=== PATIENT | male | born 1985 | race Caucasian/White ===

== ENCOUNTER 2018-03-21 11:16 | Inpatient (IN) | payer MEDICAID ==
[2018-03-21] MEDS ORDERED: Sodium Chloride 0.9% 1,000 ML IV STA ×2 (11:58→16:58)
[2018-03-21] MEDS ORDERED: Morphine 5 MG/ML SYRINGE IVP STA (11:58)
[2018-03-21] MEDS ORDERED: Morphine 2 mg/ml ISec IVP STA (12:03)
[2018-03-21] MEDS ORDERED: Iohexol 240 (50 ml) ONE (12:08)
--- NOTE | 2018-03-21 12:08 | ED PDOC ---
Arrival/HPI - History of Present Illness Time/Duration: < week Symptom Course: Worsening Activities at Onset: Light Context: Home <Livier Cooper - Last Filed: 03/21/18 13:57> <Cierra Mckay - Last Filed: 03/21/18 17:48> - General Chief Complaint: GI Problem Time Seen by Provider: 03/21/18 11:18 - History of Present Illness Narrative History of Present Illness (Text): 03/21/18 12:03 This is a 33 year old male with PMH of hemorrhoids presenting to the ER today for three day history of LLQ abdominal pain, constipation and no bowel movements. Patient states that he has had similar abdominal pain in the past, but this time it feels much worse. He denies CP, SOB, vomiting, nausea, diarrhea , hematemesis, hematochezia, fevers, headaches and chills. He denies smoking, drinking and drugs. He occasionally takes ibuprofen for the pain and proctosol cream for the hemorrhoids. PCP is Dr. De Guzman at [facility] in [place]. (Livier Cooper) Past Medical History - Provider Review Nursing Documentation Reviewed: Yes - Psychiatric Hx Psychophysiologic Disorder: No Hx Substance Use: No <Livier Cooper - Last Filed: 03/21/18 13:57> Family/Social History - Physician Review Nursing Documentation Reviewed: Yes Family/Social History: Unknown Family HX Smoking Status: Never Smoked Hx Alcohol Use: No Hx Substance Use: No <Livier Cooper - Last Filed: 03/21/18 13:57> Allergies/Home Meds <Livier Cooper - Last Filed: 03/21/18 13:57> <Cierra Mckay - Last Filed: 03/21/18 17:48> Allergies/Adverse Reactions: Allergies No Known Allergies Allergy (Verified 03/21/18 11:27) Home Medications: Home Meds Medication Instructions Recorded Confirmed Fluticasone Nasal [Flonase] 1 spray MAURY DAILY 03/21/18 03/21/18 Loratadine [Claritin] 10 mg PO DAILY 03/21/18 03/21/18 Review of Systems - Physician Review All systems were reviewed & negative as marked: Yes - Review of Systems Constitutional: Normal. absent: Fevers Eyes: Normal ENT: Normal Respiratory: Normal. absent: SOB Cardiovascular: Normal. absent: Chest Pain Gastrointestinal: Abdominal Pain, Constipation. absent: Diarrhea, Nausea, Vomiting, Hematochezia, Hematemesis Genitourinary Male: Normal, Dysuria. absent: Hematuria Musculoskeletal: Normal Skin: Normal Neurological: Normal Psychiatric: Normal <NicoleLivier metcalf - Last Filed: 03/21/18 13:57> Physical Exam Vital Signs Reviewed: Yes Temperature: Afebrile Blood Pressure: Normal Pulse: Tachycardic Respiratory Rate: Normal Appearance: Positive for: Well-Appearing, Non-Toxic, Comfortable Pain Distress: None Mental Status: Positive for: Alert and Oriented X 3 - Systems Exam Head: Present: Atraumatic, Normocephalic Pupils: Present: PERRL Extroacular Muscles: Present: EOMI Conjunctiva: Present: Normal Mouth: Present: Moist Mucous Membranes Neck: Present: Normal Range of Motion Respiratory/Chest: Present: Clear to Auscultation, Good Air Exchange. No: Respiratory Distress, Accessory Muscle Use Cardiovascular: Present: Regular Rate and Rhythm, Normal S1, S2. No: Murmurs Abdomen: Present: Tenderness, Normal Bowel Sounds, Other (tenderness LLQ). No: Distention, Peritoneal Signs, Rebound, Guarding, McBurney's Point Tender Rectal: Present: Other (tender mass noted along the inferior right margin lateral to rectum. ). No: Occult Blood, Gross Blood Back: Present: Normal Inspection Upper Extremity: Present: Normal Inspection. No: Cyanosis, Edema Lower Extremity: Present: Normal Inspection. No: Edema Neurological: Present: Speech Normal, Motor Func Grossly Intact, Normal Sensory Function Skin: Present: Warm, Dry, Normal Color. No: Rashes Psychiatric: Present: Alert, Oriented x 3, Normal Insight, Normal Concentration <Livier Cooper - Last Filed: 03/21/18 13:57> Vital Signs Temp Pulse Resp BP Pulse Ox 03/21/18 17:27 101 H 20 122/85 98 03/21/18 16:58 98.0 F 96 H 18 102/82 97 03/21/18 11:28 99.0 F 133 H 20 116/82 100 Medical Decision Making <NicoledixonLivier - Last Filed: 03/21/18 13:57> <Cierra Mckay - Last Filed: 03/21/18 17:48> ED Course and Treatment: 03/21/18 12:13 Impression: This is a 33 year old male with PMH of hemorrhoids presenting to the ER today for three day history of LLQ abdominal pain, constipation and no bowel movements. Differential not limited to: Rectal abscess vs. perirectal abscess vs hemmorrhoids vs diverticulosis Plan: Blood work and lipase. Ordering CT abdomen to visualize rectal abscess. Progress: 03/21/18 13:57 Patient resting comfortably, no acute distress and afebrile. (Livier Cooper) 03/21/18 15:35 Patient seen by resident and then evaluated by me. Complaining of constipation and rectal pain. Physical exam shows fluctulant abscess near rectum. LLQ pain also on exam. Rectal exam deferred due to severe pain. CT shows "No acute intra-abdominal findings. There is a right-sided perirectal abscess measuring 28 mm in height and 16 mm in diameter". Surgery resident aware. Dr. Liu paged 03/21/18 17:47 EKG shows NSR at 100bpm. Normal intervals and no ST changes. Accepted by Dr. Saldaña with plan for OR tomorrow morning (Cierra Mckay) - Lab Interpretations Lab Results: 03/21/18 12:17 03/21/18 12:17 Lab Results 03/21/18 12:17: Sodium 141, Potassium 4.4, Chloride 102, Carbon Dioxide 27, Anion Gap 16, BUN 8, Creatinine 0.9, Est GFR ( Amer) > 60, Est GFR (Non- Af Amer) > 60, Random Glucose 104, Calcium 9.3, Total Bilirubin 1.2, AST 28, ALT 47, Alkaline Phosphatase 57, Total Protein 8.0, Albumin 4.5, Globulin 3.5, Albumin/Globulin Ratio 1.3, Lipase 13 L 03/21/18 12:17: WBC 9.0, RBC 4.69, Hgb 14.8, Hct 42.3, MCV 90.2, MCH 31.6, MCHC 35.0, RDW 13.1, Plt Count 201, MPV 10.9, Gran % 74.0 H, Lymph % (Auto) 16.4 L, Amador % (Auto) 7.8 H, Eos % (Auto) 1.6, Baso % (Auto) 0.2, Gran # 6.69 H, Lymph # (Auto) 1.5, Amador # (Auto) 0.7 H, Eos # (Auto) 0.1, Baso # (Auto) 0.02 - RAD Interpretation Radiology Orders: 03/21/18 11:58 ABD PELVIS PO & IV CONTRAST [CT] Stat - Medication Orders Current Medication Orders: Sodium Chloride (Sodium Chloride 0.9%) 1,000 mls @ 999 mls/hr IV .Q1H1M STA Stop: 03/21/18 17:58 Last Admin: 03/21/18 16:59 Dose: 999 mls/hr eMAR Start Stop Document 03/21/18 16:59 [email or web address] (Rec: 03/21/18 17:00 [email or web address] [id number]) Intravenous Solution Start Date 03/21/18 Start Time 17:00 End Date 03/21/18 Discontinued Medications Sodium Chloride (Sodium Chloride 0.9%) 1,000 mls @ 999 mls/hr IV .Q1H1M STA Stop: 03/21/18 12:58 Last Admin: 03/21/18 12:23 Dose: 999 mls/hr eMAR Start Stop Document 03/21/18 12:23 [email or web address] (Rec: 03/21/18 12:25 [email or web address] [id number]) Intravenous Solution Start Date 03/21/18 Start Time 12:25 Lidocaine (Lidocaine 5%) 1 gm TOP STAT STA Stop: 03/21/18 15:02 Last Admin: 03/21/18 17:00 Dose: 1 gm Morphine Sulfate (Morphine) 5 mg IVP STAT STA Stop: 03/21/18 12:04 Last Admin: 03/21/18 12:25 Dose: 5 mg MAR Pain Assessment Document 03/21/18 12:25 [email or web address] (Rec: 03/21/18 12:25 [email or web address] [id number]) Pain Reassessment Is this a pain reassessment? No Sleep Is patient sleeping during reassessment? No Presence of Pain Presence of Pain Yes Pain Scale Used Pain Scale Used Numeric Location Pain Location Body Site Abdomen Description Description Constant Intensity of Pain at present 7 Pain Behavior Facial Grimacing Aggravating Factors Changing Position Alleviating Factors/Management Medication Techniques Alleviating Factors Medication IVP Administration Document 03/21/18 12:25 [email or web address] (Rec: 03/21/18 12:25 [facility] [id number]) Charges for Administration # of IVP Administrations 1 - PA / DIVIDEND CLERK / Resident Statement / has reviewed & agrees with the documentation as recorded. / has examined the patient and agrees with the treatment plan. <Livier Cooper - Last Filed: 03/21/18 13:57> Disposition/Present on Arrival - Present on Arrival History of DVT/PE: No History of Uncontrolled Diabetes: No Urinary Catheter: No History of Decub. Ulcer: No History Surgical Site Infection Following: None <Livier Cooper - Last Filed: 03/21/18 13:57> - Present on Arrival Any Indicators Present on Arrival: No - Disposition Have Diagnosis and Disposition been Completed?: Yes Disposition Time: 17:48 Patient Plan: Admission <Cierra Mckay - Last Filed: 03/21/18 17:48> - Disposition Diagnosis: Rectal abscess Disposition: HOSPITALIZED Condition: FAIR Referrals: Craig De Guzman [Primary Care Provider] - Follow up with primary Forms: [employer]Me (Thai)
[2018-03-21 12:20] LABS: BASO # 0.02 K/mm3 (0.0-2.0); BASO % 0.2 % (0.0-3.0); EOS # 0.1 (0.0-0.7); EOS % 1.6 % (1.5-5.0); GRAN # 6.69 (1.4-6.5); HEMOGLOBIN 14.8 g/dL (14.0-18.0); LYMPH # 1.5 (1.2-3.4); LYMPH % 16.4 % (22.0-35.0); MEAN CELL VOLUME 90.2 fl (80.0-105.0); MEAN CORPUSCULAR HEMOGLOBIN 31.6 pg (25.0-35.0); MEAN PLATELET VOLUME 10.9 fl (7.0-11.0); MONO # 0.7 (0.1-0.6); MONO % 7.8 % (1.0-6.0); RBC 4.69 10^6/uL (3.5-6.1); RED CELL DISTRIBUTION WIDTH 13.1 % (11.5-14.5)
[2018-03-21 12:30] LABS: ALB/GLOB RATIO 1.3 (1.1-1.8); ALBUMIN 4.5 g/dL (3.0-4.8); ALT/SGPT 47 U/L (7-56); AST/SGOT 28 U/L (17-59); BLOOD UREA NITROGEN 8 mg/dL (7-21); CALCIUM 9.3 mg/dL (8.4-10.5); GFR AFRICAN-AMERICAN > 60; GFR NON-AFRICAN AMERICAN > 60; LIPASE 13 U/L (23-300)
[2018-03-21] MEDS ORDERED: Lidocaine 2% Jelly (Uro-Jet) TOP STA (13:45)
[2018-03-21] MEDS ORDERED: Lidocaine 5% Oint(35 gm) TOP STA (15:01)
--- NOTE | 2018-03-21 15:29 | CT ---
Date of service: 03/21/2018 PROCEDURE: CT Abdomen and Pelvis with contrast HISTORY: LLQ abd pain with rectal abscess COMPARISON: None. TECHNIQUE: Contrast dose: 150 cc of Omni 350 Radiation dose: Total exam DLP = 963 mGy-cm. This CT exam was performed using one or more of the following dose reduction techniques: Automated exposure control, adjustment of the mA and/or kV according to patient size, and/or use of iterative reconstruction technique. FINDINGS: LOWER THORAX: Unremarkable. LIVER: Unremarkable. No gross lesion or ductal dilatation. GALLBLADDER AND BILE DUCTS: Unremarkable. PANCREAS: Unremarkable. No gross lesion or ductal dilatation. SPLEEN: Unremarkable. ADRENALS: Unremarkable. No mass. KIDNEYS AND URETERS: Unremarkable. No hydronephrosis. No solid mass. VASCULATURE: Unremarkable. No aortic aneurysm. BOWEL: Unremarkable. No obstruction. No gross mural thickening. There is a right-sided perirectal abscess measuring 28 mm in height and 16 mm in diameter APPENDIX: Normal appendix. PERITONEUM: Unremarkable. No free fluid. No free air. LYMPH NODES: Unremarkable. No enlarged lymph nodes. BLADDER: Unremarkable. REPRODUCTIVE: Unremarkable. BONES: No acute fracture. OTHER FINDINGS: None. IMPRESSION: No acute intra-abdominal findings There is a right-sided perirectal abscess measuring 28 mm in height and 16 mm in diameter
[2018-03-21] MEDS ORDERED: Morphine 4 mg/ml ISec IVP STA (17:47)
--- NOTE | 2018-03-21 18:09 | CP.PCM.CON ---
History of Present Illness - History of Present Illness History of Present Illness: General Surgery consult note for Dr. Liu Consulted for rectal abscess/ perirectal abscess Mr. Connell is a 33 yr old male with PMH of hemorrhoids (3 years ago) who presents with rectal pain for approximately one week. Associated symptoms include LLQ abdominal pain, alternating diarrhea (chronic) and constipation. Patient otherwise denies N/V, F/C, bloody stool, drainage or pus from abscess area, any previous episodes like this. patient does complain of headache and admits that he has not been drinking much water recently. Patient did have near syncopal episode when moving rooms in ER with BP reading after getting to bed of 88/32, 1L bolus NS was started, BP was 122/85 within 5 min of episode. PMH: hemorrhoids PSH: none Allergies: none Social: occasion hooka smoking, occasional etoh, no drugs Review of Systems - Review of Systems All systems: reviewed and no additional remarkable complaints except Review of Systems: as Per HPI Past Patient History - Past Social History Smoking Status: Never Smoked - PSYCHIATRIC Hx Psychophysiologic Disorder: No Hx Substance Use: No - SURGICAL HISTORY Hx Surgeries: No Meds Allergies/Adverse Reactions: Allergies Allergy/AdvReac Type Severity Reaction Status Date / Time No Known Allergies Allergy Verified 03/21/18 11:27 - Medications Medications: Current Medications Acetaminophen (Tylenol 325mg Tab) 650 mg PO Q6 PRN PRN Reason: Pain, Mild (1-3) Docusate Sodium (Colace) 100 mg PO BID PRN PRN Reason: Constipation Morphine Sulfate (Morphine) 5 mg IVP Q6H PRN PRN Reason: Pain, severe (8-10) Ondansetron HCl (Zofran Inj) 4 mg IVP Q6 PRN PRN Reason: Nausea/Vomiting Oxycodone/Acetaminophen (Percocet 5/325 Mg Tab) 1 tab PO Q6H PRN PRN Reason: Pain, moderate (4-7) Stop: 03/24/18 18:01 Physical Exam - Constitutional Appears: Well, Non-toxic - Head Exam Head Exam: ATRAUMATIC, NORMOCEPHALIC - ENT Exam ENT Exam: Mucous Membranes Moist - Respiratory Exam Respiratory Exam: NORMAL BREATHING PATTERN - Cardiovascular Exam Cardiovascular Exam: Tachycardia - GI/Abdominal Exam GI & Abdominal Exam: Soft, Tenderness. absent: Distended, Guarding, Rebound, Rigid Additional comments: mild LLQ tenderness - Rectal Exam Rectal Exam: absent: Bloody Stool, Hemorrhoids, Fecal Impaction Additional comments: 3cm by 2 cm erythematous fluctuant mass on the right aspect of the anus which extends into the rectal vault, no hemorrhoids felt or visualized on exam, no gross blood on exam, heme-occult negative, no masses or stool in rectal vault, prostate smooth and nonenlarged, pt was extremely tender on exam - Extremities Exam Extremities exam: Negative for: pedal edema - Neurological Exam Neurological exam: Alert, Oriented x3 - Psychiatric Exam Psychiatric exam: Anxious - Skin Skin Exam: Dry, Intact, Warm Additional comments: 3cm x 2.5 cm erythematous fluctuant area in right perirectal area Results - Vital Signs Recent Vital Signs: Last Vital Signs Temp 98.0 F 03/21/18 16:58 Pulse 101 H 03/21/18 17:27 Resp 20 03/21/18 17:27 BP 122/85 03/21/18 17:27 Pulse Ox 98 03/21/18 17:27 - Labs Result Diagrams: 03/21/18 12:17 03/21/18 12:17 Assessment & Plan - Assessment and Plan (Free Text) Assessment: 33 yr old male with rectal abscess Plan: -WBC normal, mild left shift - begin abx levoquin and flagyl - PRN pain medication - patient NPO after midnight - I &D of abscess in OR in AM
[2018-03-21] MEDS: Morphine 4 mg/ml ISec IVP PRN ×2 (18:30→23:45)
[2018-03-21] MEDS: Oxycodone/Acetaminophen 5/325 mg Tab PO PRN (20:18)
[2018-03-21] MEDS: metroNIDAZOLE IV 500 mg/100 ml 500 MG/100 ML BAG IVPB SCH (23:46)
[2018-03-22] MEDS: Oxycodone/Acetaminophen 5/325 mg Tab PO PRN ×2 (03:04→17:42)
[2018-03-22] MEDS: metroNIDAZOLE IV 500 mg/100 ml 500 MG/100 ML BAG IVPB SCH ×4 (05:07→23:05)
[2018-03-22] MEDS: Morphine 4 mg/ml ISec IVP PRN (05:14)
[2018-03-22 07:35] LABS: BASO # 0.02 K/mm3 (0.0-2.0); BASO % 0.2 % (0.0-3.0); EOS % 0.1 % (1.5-5.0); GRAN # 8.8 (1.4-6.5); GRAN % 79.7 % (50.0-68.0); HEMOGLOBIN 13.5 g/dL (14.0-18.0); LYMPH # 1.4 (1.2-3.4); LYMPH % 12.6 % (22.0-35.0); MEAN CELL VOLUME 91.3 fl (80.0-105.0); MEAN CORPUSCULAR HEMOGLOBIN 30.8 pg (25.0-35.0); MEAN CORPUSCULAR HGB CONC 33.8 g/dl (31.0-37.0); MEAN PLATELET VOLUME 10.9 fl (7.0-11.0); MONO # 0.8 (0.1-0.6); MONO % 7.4 % (1.0-6.0); RBC 4.38 10^6/uL (3.5-6.1); RED CELL DISTRIBUTION WIDTH 12.9 % (11.5-14.5)
[2018-03-22] MEDS ORDERED: Propofol 10 mg/ml Inj (20 ML) ONE (07:43)
[2018-03-22] MEDS ORDERED: Midazolam 2 MG/2 ML VIAL ONE (07:43)
[2018-03-22 07:45] LABS: INR 1.17 (0.93-1.08); PARTIAL THROMBOPLASTIN TIME 26.6 Seconds (25.1-36.5); PROTHROMBIN TIME 13.5 SECONDS (9.4-12.5)
[2018-03-22 07:50] LABS: BLOOD UREA NITROGEN 7 mg/dL (7-21); GFR AFRICAN-AMERICAN > 60; GFR NON-AFRICAN AMERICAN > 60
[2018-03-22] MEDS ORDERED: HYDROmorphone 0.5 mg/0.5 ml ISec IVP PRN (08:49)
--- NOTE | 2018-03-22 08:53 | PCM.SURG1 ---
Surgeon's Initial Post Op Note - Surgeon's Notes Surgeon: Dr. Liu Service Delivery Analyst: Tari Alvarez, PGY 1 Type of Anesthesia: General Endo Pre-Operative Diagnosis: Rectal abscess Operative Findings: 4cm x 3 cm loculated rectal abscess, no masses ulcers or fistulas seen on proctoscopic investigation Post-Operative Diagnosis: rectal abscess Operation Performed: Irrigation and drainage of rectal abscess, exam under anesthesia Specimen/Specimens Removed: wound culture Estimated Blood Loss: EBL {In ML}: 5 Blood Products Given: N/A Drains Used: [place] Post-Op Condition: Fair Date of Surgery/Procedure: 03/22/18 Time of Surgery/Procedure: 08:15
[2018-03-22] MEDS ORDERED: Lactated Ringer's 1,000 ML IV SCH (09:00)
[2018-03-22] MEDS: levoFLOXacin 750 mg in D5W 750 MG/150 ML BAG IVPB SCH (10:38)
--- NOTE | 2018-03-22 12:21 | CARD ---
APPROVED REPORT Date of service: 03/21/2018 EKG Measurement Heart [id number] <Conclusion> Normal sinus rhythm Normal ECG
[2018-03-22] MEDS: POLYETHYLENE GLYCOL 3350 17 GM/Dose PACKET PO SCH (17:41)
[2018-03-23] MEDS: Oxycodone/Acetaminophen 5/325 mg Tab PO PRN ×2 (02:01→12:01)
[2018-03-23] MEDS: metroNIDAZOLE IV 500 mg/100 ml 500 MG/100 ML BAG IVPB SCH ×4 (05:08→23:20)
--- NOTE | 2018-03-23 08:20 | CP.PCM.PN ---
Subjective - Date & Time of Evaluation Date of Evaluation: 03/23/18 Time of Evaluation: 06:00 - Subjective Subjective: Patient seen and evaluated bedside. No acute issues overnight. Patent states he has very minimal tenderness in rectal area. Patient has not had a BM yet. Patient denies any fever, chills, abdominal pain, chest pain, SOB, or any complaints at this time. Objective - Vital Signs/Intake and Output Vital Signs (last 24 hours): Temp Pulse Resp BP Pulse Ox 98.7 F 92 H 20 132/85 98 03/22/18 22:00 03/22/18 22:00 03/22/18 22:00 03/22/18 22:00 03/22/18 22:00 Intake and Output: 03/23/18 03/23/18 06:59 18:59 Intake Total 980 Balance 980 - Medications Medications: Current Medications Acetaminophen (Tylenol 325mg Tab) 650 mg PO Q6 PRN PRN Reason: Pain, Mild (1-3) Docusate Sodium (Colace) 100 mg PO BID PRN PRN Reason: Constipation Metronidazole (Flagyl) 500 mg in 100 mls @ 100 mls/hr IVPB Q6 RAMON PRN Reason: Protocol Last Admin: 03/23/18 05:08 Dose: 100 mls/hr Levofloxacin/Dextrose (Levaquin 750mg) 750 mg in 150 mls @ 100 mls/hr IVPB DAILY RAMON PRN Reason: Protocol Last Admin: 03/22/18 10:38 Dose: 100 mls/hr Morphine Sulfate (Morphine) 5 mg IVP Q6H PRN PRN Reason: Pain, severe (8-10) Last Admin: 03/22/18 05:14 Dose: 5 mg Ondansetron HCl (Zofran Inj) 4 mg IVP Q6 PRN PRN Reason: Nausea/Vomiting Ondansetron HCl (Zofran Inj) 4 mg IVP ONCE PRN PRN Reason: Nausea/Vomiting Oxycodone/Acetaminophen (Percocet 5/325 Mg Tab) 1 tab PO Q6H PRN PRN Reason: Pain, moderate (4-7) Stop: 03/24/18 18:01 Last Admin: 03/23/18 02:01 Dose: 1 tab Polyethylene Glycol (Miralax) 17 gm PO DAILY [facility] Last Admin: 07/18/18 17:41 Dose: 17 gm - Labs Labs: 03/22/18 07:00 03/22/18 07:00 PT 13.5 SECONDS (9.4-12.5) H 03/22/18 07:00 INR 1.17 (0.93-1.08) H 03/22/18 07:00 APTT 26.6 Seconds (25.1-36.5) 03/22/18 07:00 - Constitutional Appears: Well, Non-toxic, No Acute Distress - Head Exam Head Exam: ATRAUMATIC, NORMAL INSPECTION, NORMOCEPHALIC - Eye Exam Eye Exam: EOMI, Normal appearance - ENT Exam ENT Exam: Mucous Membranes Moist - Respiratory Exam Respiratory Exam: Clear to Ausculation Bilateral, NORMAL BREATHING PATTERN - Cardiovascular Exam Cardiovascular Exam: REGULAR RHYTHM, +S1, +S2 - GI/Abdominal Exam GI & Abdominal Exam: Soft. absent: Distended, Guarding, Rigid, Tenderness - Rectal Exam Additional comments: emilia drain in place, suture in tact between emilia, dressing in tact - Neurological Exam Neurological Exam: Alert, Awake, Oriented x3 Assessment and Plan - Assessment and Plan (Free Text) Assessment: 33 yr old male with rectal abscess, status post I&D. Plan: - status post I&D yesterday - f/u cultures - continue sitz baths - monitor dressing site - continue abx - PRN pain medication - case discussed with Dr. Liu - further recs as per Dr. Liu
[2018-03-23] MEDS: levoFLOXacin 750 mg in D5W 750 MG/150 ML BAG IVPB SCH (09:33)
[2018-03-23] MEDS: POLYETHYLENE GLYCOL 3350 17 GM/Dose PACKET PO SCH (09:33)
[2018-03-23 11:48] LABS: BASO # 0.02 K/mm3 (0.0-2.0); BASO % 0.3 % (0.0-3.0); EOS # 0.1 (0.0-0.7); EOS % 2.1 % (1.5-5.0); GRAN # 3.98 (1.4-6.5); GRAN % 69.2 % (50.0-68.0); HEMOGLOBIN 13.2 g/dL (14.0-18.0); LYMPH # 1.2 (1.2-3.4); LYMPH % 20.9 % (22.0-35.0); MEAN CELL VOLUME 91.6 fl (80.0-105.0); MEAN CORPUSCULAR HEMOGLOBIN 30.6 pg (25.0-35.0); MEAN CORPUSCULAR HGB CONC 33.4 g/dl (31.0-37.0); MEAN PLATELET VOLUME 10.7 fl (7.0-11.0); MONO # 0.4 (0.1-0.6); MONO % 7.5 % (1.0-6.0); RBC 4.31 10^6/uL (3.5-6.1); WHITE BLOOD COUNT 5.8 10^3/ul (4.5-11.0)
[2018-03-23 15:05] VITALS: TEMP 97.8
[2018-03-24] MEDS: metroNIDAZOLE IV 500 mg/100 ml 500 MG/100 ML BAG IVPB SCH (05:48)
[2018-03-24] MEDS: Oxycodone/Acetaminophen 5/325 mg Tab PO PRN (06:12)
[2018-03-24 08:05] VITALS: BP 111/74; PULSE 88; RESP 20; O2SAT 97
[2018-03-24] MEDS: levoFLOXacin 750 mg in D5W 750 MG/150 ML BAG IVPB SCH (09:13)
[2018-03-24] MEDS: POLYETHYLENE GLYCOL 3350 17 GM/Dose PACKET PO SCH (09:13)
--- NOTE | 2018-03-24 10:55 | CP.PCM.PN ---
Subjective - Date & Time of Evaluation Date of Evaluation: 03/24/18 Time of Evaluation: 08:30 - Subjective Subjective: General Surgery Progress Note for Dr. Liu Pt seen and examined this morning. he is recovering well with minimal bloody drainage, emilia is still in place. patient is urinating and having BMs ( diarrhea). His pain is well controlled. he denies n/v/f/c and abdominal pain. Objective - Vital Signs/Intake and Output Vital Signs (last 24 hours): Temp Pulse Resp BP Pulse Ox 97.8 F 88 20 111/74 97 03/24/18 06:00 03/24/18 06:00 03/24/18 06:00 03/24/18 06:00 03/24/18 06:00 Intake and Output: 03/24/18 03/24/18 06:59 18:59 Intake Total 360 Balance 360 - Medications Medications: Current Medications Acetaminophen (Tylenol 325mg Tab) 650 mg PO Q6 PRN PRN Reason: Pain, Mild (1-3) Last Admin: 03/23/18 15:34 Dose: 650 mg Docusate Sodium (Colace) 100 mg PO BID PRN PRN Reason: Constipation Metronidazole (Flagyl) 500 mg in 100 mls @ 100 mls/hr IVPB Q6 RAMON PRN Reason: Protocol Last Admin: 03/24/18 05:48 Dose: 100 mls/hr Levofloxacin/Dextrose (Levaquin 750mg) 750 mg in 150 mls @ 100 mls/hr IVPB DAILY RAMON PRN Reason: Protocol Last Admin: 03/24/18 09:13 Dose: 100 mls/hr Morphine Sulfate (Morphine) 5 mg IVP Q6H PRN PRN Reason: Pain, severe (8-10) Last Admin: 03/22/18 05:14 Dose: 5 mg Ondansetron HCl (Zofran Inj) 4 mg IVP Q6 PRN PRN Reason: Nausea/Vomiting Ondansetron HCl (Zofran Inj) 4 mg IVP ONCE PRN PRN Reason: Nausea/Vomiting Oxycodone/Acetaminophen (Percocet 5/325 Mg Tab) 1 tab PO Q6H PRN PRN Reason: Pain, moderate (4-7) Stop: 03/24/18 18:01 Last Admin: 03/24/18 06:12 Dose: 1 tab Polyethylene Glycol (Miralax) 17 gm PO DAILY RAMON Last Admin: 03/24/18 09:13 Dose: 17 gm - Labs Labs: 03/23/18 11:20 03/22/18 07:00 PT 13.5 SECONDS (9.4-12.5) H 03/22/18 07:00 INR 1.17 (0.93-1.08) H 03/22/18 07:00 APTT 26.6 Seconds (25.1-36.5) 03/22/18 07:00 - Constitutional Appears: Well, Non-toxic, No Acute Distress - Head Exam Head Exam: ATRAUMATIC, NORMOCEPHALIC - ENT Exam ENT Exam: Mucous Membranes Moist - Respiratory Exam Respiratory Exam: NORMAL BREATHING PATTERN - GI/Abdominal Exam GI & Abdominal Exam: Soft. absent: Distended, Guarding, Rigid, Tenderness, Rebound - Extremities Exam Extremities Exam: absent: Pedal Edema, Tenderness - Skin Additional comments: emilia drain in place, minimal bloody output from incisions, no pus noted on dressing, dressing changed at bedside Assessment and Plan - Assessment and Plan (Free Text) Assessment: 33 yr old male POD 2 s/p I&D of rectal abscess, patient is recovering well Plan: -clear for D/c from surgical standpoint -will go home with emilia in place - f/u for emilia to be removed in office -patient given prescription for ciprofloxacin and tylenol with codeine to go home with - patient may remove dressing and shower then replace dressing - discussed with Dr. Noe Alvarez, PGY1
--- NOTE | 2018-03-24 11:59 | CP.PCM.DIS ---
Provider - Provider Date of Admission: 03/21/18 17:41 Attending physician: Richie Liu MD Primary care physician: Craig De Guzman MD Consults: Urology Dr. Rojas Time Spent in preparation of Discharge (in minutes): 30 Diagnosis - Discharge Diagnosis (1) Rectal abscess Status: Resolved Hospital Course - Lab Results Lab Results: Micro Results 03/22/18 09:06 Other: Please Indicate Gram Stain - Final 03/22/18 09:06 Other: Please Indicate Wound Culture - Final Klebsiella Pneumoniae Ssp Pneu Most Recent Lab Values WBC 5.8 10^3/ul (4.5-11.0) D 03/23/18 11:20 RBC 4.31 10^6/uL (3.5-6.1) 03/23/18 11:20 Hgb 13.2 g/dL (14.0-18.0) L 03/23/18 11:20 Hct 39.5 % (42.0-52.0) L 03/23/18 11:20 MCV 91.6 fl (80.0-105.0) 03/23/18 11:20 MCH 30.6 pg (25.0-35.0) 03/23/18 11:20 MCHC 33.4 g/dl (31.0-37.0) 03/23/18 11:20 RDW 13.0 % (11.5-14.5) 03/23/18 11:20 Plt Count 205 10^3/uL (120.0-450.0) 03/23/18 11:20 MPV 10.7 fl (7.0-11.0) 03/23/18 11:20 Gran % 69.2 % (50.0-68.0) H 03/23/18 11:20 Lymph % (Auto) 20.9 % (22.0-35.0) L 03/23/18 11:20 Lucas % (Auto) 7.5 % (1.0-6.0) H 03/23/18 11:20 Eos % (Auto) 2.1 % (1.5-5.0) 03/23/18 11:20 Baso % (Auto) 0.3 % (0.0-3.0) 03/23/18 11:20 Gran # 3.98 (1.4-6.5) 03/23/18 11:20 Lymph # (Auto) 1.2 (1.2-3.4) 03/23/18 11:20 Lucas # (Auto) 0.4 (0.1-0.6) 03/23/18 11:20 Eos # (Auto) 0.1 (0.0-0.7) 03/23/18 11:20 Baso # (Auto) 0.02 K/mm3 (0.0-2.0) 03/23/18 11:20 PT 13.5 SECONDS (9.4-12.5) H 03/22/18 07:00 INR 1.17 (0.93-1.08) H 03/22/18 07:00 APTT 26.6 Seconds (25.1-36.5) 03/22/18 07:00 Sodium 139 mmol/L (132-148) 03/22/18 07:00 Potassium 4.1 mmol/L (3.6-5.0) 03/22/18 07:00 Chloride 103 mmol/L (98-107) 03/22/18 07:00 Carbon Dioxide 25 mmol/L (21-33) 03/22/18 07:00 Anion Gap 15 (10-20) 03/22/18 07:00 BUN 7 mg/dL (7-21) 03/22/18 07:00 Creatinine 0.9 mg/dl (0.8-1.5) 03/22/18 07:00 Est GFR ( Amer) > 60 03/22/18 07:00 Est GFR (Non-Af Amer) > 60 03/22/18 07:00 Random Glucose 109 mg/dL (70-110) 03/22/18 07:00 Calcium 9.0 mg/dL (8.4-10.5) 03/22/18 07:00 Phosphorus 3.5 mg/dL (2.5-4.5) 03/22/18 07:00 Magnesium 2.2 mg/dL (1.7-2.2) 03/22/18 07:00 Total Bilirubin 1.2 mg/dL (0.2-1.3) 03/21/18 12:17 AST 28 U/L (17-59) 03/21/18 12:17 ALT 47 U/L (7-56) 03/21/18 12:17 Alkaline Phosphatase 57 U/L (38-126) 03/21/18 12:17 Total Protein 8.0 g/dL (5.8-8.3) 03/21/18 12:17 Albumin 4.5 g/dL (3.0-4.8) 03/21/18 12:17 Globulin 3.5 gm/dL 03/21/18 12:17 Albumin/Globulin Ratio 1.3 (1.1-1.8) 03/21/18 12:17 Lipase 13 U/L (23-300) L 03/21/18 12:17 - Hospital Course Hospital Course: 33 yr old male presented to the ED on 03/21 for rectal pain x 1 week associated with diarrhea but no n/v/f/c. Rectal exam and CT revealed abscess which on exam and CT seemed to track into the rectum. no pus or blood was revealed on exam. 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 This was confirmed on exam. Urology (Dr. Rojas) was consulted for further evaluation. Patient was scheduled for I&D in the OR on 03/22. Abscess was I&D in OR on 03/22, purulent fluid was drained, lysis of septations in the abscess was achieved, emilia drain was placed, cultures were taken, exam under anesthesia with proctoscope reveled no fistulas, ulcers or masses. Cultures revealed klebsiella. Patient will go home on Ciprofloxacin for 14 days and tylenol with codeine for pain Discharge Exam - Head Exam Head Exam: ATRAUMATIC, NORMOCEPHALIC - ENT Exam ENT Exam: Mucous Membranes Moist - Respiratory Exam Respiratory Exam: NORMAL BREATHING PATTERN - GI/Abdominal Exam GI & Abdominal Exam: Soft. absent: Distended, Guarding, Rebound, Rigid, Tenderness - Neurological Exam Neurological exam: Alert, Oriented x3 - Psychiatric Exam Psychiatric exam: Normal Affect, Normal Mood - Skin Skin Exam: Normal Color Additional comments: emilia drain in place, minimal bloody output on dressing, no pus noted on dressing Discharge Plan - Discharge Medications Prescriptions: Acetaminophen with Codeine [Tylenol with Codeine #3 Tablet] 1 each PO Q6H PRN # 16 tablet PRN Reason: Pain, Moderate (4-7) Ciprofloxacin HCl [Cipro] 500 mg PO BID #14 tablet - Follow Up Plan Condition: FAIR Disposition: HOME/ ROUTINE Instructions: Abscess Incision and Drainage, Hemorrhoids (DC), Surgical Wound ( DC), Abscess (GEN) Additional Instructions: Patient may remove dressing to shower and replace new dressing afterwards [place] drain to remain in place and be removed in office follow up visit Patient to take tylenol with codeine for pain control, do not operate machinery or drive while taking medication, may also take plain tylenol but not at the same time as tylenol with codeine Patient should have sitz baths as needed Patient to take all of the ciprofloxacin antibiotics (2 weeks worth) - if you develop a fever, nausea, vomiting, chills, return of fluid collection or any other concerning symptoms please return to the Emergency room Referrals: Richie Liu MD [Staff Provider] - Clinical Quality Measures - Date & Time of Discharge Summary Date of Discharge Summary: 03/24/18 Time of Discharge Summary: 12:12
--- NOTE | 2018-03-24 14:32 | PN ---
DATE: 03/24/2018 SUBJECTIVE: This is a patient who was seen in his room at [facility]. The patient was admitted and treated for a perirectal abscess. During his admission and workup, the patient was noted to have an absent testicle and a consultation was requested. On discussion with the patient, he reports no groin or scrotal pain. He reports he has never had a noted testicle on that side. He is unsure if he has seen urologist in the past. He reports no voiding difficulties. No dysuria, frequency, urgency or gross hematuria. He is feeling much better after the drainage of the perirectal abscess. PHYSICAL EXAMINATION: VITAL SIGNS: He is afebrile. Blood pressure 111/74, respirations 20, pulse of 88. ABDOMEN: Soft, nontender, nondistended. There is no hepatosplenomegaly or costovertebral angle tenderness. : Phallus is normal. Scrotum is somewhat hypoplastic. The right testicle is palpable towards more of the midline of the scrotum. There is no obvious mass. The right epididymis is also normal and nontender. The left testicle was not in the scrotum. I do feel some cord structures in the left inguinal region with a possibly atrophic left testicle. Again, no mass is noted. RADIOLOGIC DATA: The patient had a CT scan of the abdomen and pelvis on 03/21/2018. The bladder was unremarkable. The kidneys were unremarkable. No hydronephrosis or solid mass. There was no note of any para-aortic or retroperitoneal lymph node. 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 There is no acute intervention necessary at this time, but I did recommend to him that he should have outpatient urologic followup, possibly an MRI of his pelvis and inguinal region. The patient understands no acute urologic intervention is necessary and he will follow up as an outpatient. Anastacio Rojas MD
--- NOTE | 2018-03-29 06:27 | OP ---
PROCEDURE DATE: 03/22/2018 DESCRIPTION OF PROCEDURE: Seen in the operating room. He has a perirectal abscess. The patient was put in lithotomy at the end of the table. The area was prepped with Betadine, and after successful time-out, the area was prepped and draped. The palpable drain on the right side of the rectum at about 10 o'clock was opened. A large abscess was entered. This was followed superiorly and inferiorly and a Tamia was looped to itself through a separate incision and then tied. The area was aerobically and anaerobically cultured and it was dressed. Patient was taken to recovery room in good condition after the sponge and needle counts were declared correct. Sigmoidoscopy was also performed and it was otherwise unremarkable. Richie Liu MD
== END 2018-03-24 14:01 | disposition home or self-care (01) | DRG 152 ==
LOC: ED 11:16 → ERH 17:41 → MERGE 17:41 → 5RNO 19:53
PROVIDERS: ADMIT Surgery; ATTEND Surgery
PROC: 0DJD8ZZ Inspection of Lower Intestinal Tract, Via Natural or Artificial Opening Endoscopic (ICD-10-PCS; 2018-03-22)
PROC: 0D9P0ZZ Drainage of Rectum, Open Approach (ICD-10-PCS; principal; 2018-03-22 07:30)
DX: K61.1 Rectal abscess (principal); B96.1 Klebsiella pneumoniae [K. pneumoniae] as the cause of diseases classified elsewhere; K64.9 Unspecified hemorrhoids; Q55.0 Absence and aplasia of testis